=== PATIENT | female | born 2000 | race Caucasian/White ===

== ENCOUNTER 2020-03-21 15:38 | Emergency (ER) | payer BC ==
[~2020-03-21] VITALS: Ht 152.4 cm; Wt 45.1 kg
[2020-03-21 15:43] VITALS: Ht 152.4 cm; Wt 45.1 kg
[2020-03-21 16:15] LABS: BASOPHIL % 0.2 % (0-2); PLATELET COUNT 210 x10^3mcL (130-400); RED CELL DISTRIBUTION WIDTH 12.9 % (11.5-14.5)
[2020-03-21 16:28] LABS: ALBUMIN 3.8 g/dL (3.4-5.0); ALKALINE PHOSPHATASE 62 U/L (46-116); ALT/SGPT 16 U/L (14-59); AST/SGOT 10 U/L (15-37); BILIRUBIN TOTAL 0.24 mg/dL (0.20-1.00); CALCIUM 8.6 mg/dL (8.5-10.1); CARBON DIOXIDE 28.3 mmol/L (21-32); CHLORIDE SERUM 106 mmol/L (98-107); CREATININE SERUM 0.7 mg/dL (0.6-1.0); GFR1 > 60 mL/min; GLUCOSE SERUM 89 mg/dL (74-106); LIPASE 184 IU/L (73-393); POTASSIUM SERUM 3.4 mmol/L (3.5-5.1); SODIUM SERUM 140 mmol/L (136-145); TOTAL PROTEIN, SERUM 7.3 g/dL (6.4-8.2)
[2020-03-21 17:52] VITALS: BP 100/58
== END 2020-03-21 17:52 | disposition home or self-care (01) ==
LOC: ED 15:38
PROVIDERS: Emergency Medicine
DX: K59.00 Constipation, unspecified (principal); K29.70 Gastritis, unspecified, without bleeding
CPT/HCPCS: 36415; Q0092

== ENCOUNTER 2020-08-21 17:51 | Emergency (ER) | payer OTHER, BC ==
[~2020-08-21] VITALS: Ht 152.4 cm; Wt 45.8 kg
[2020-08-21 18:20] VITALS: Ht 152.4 cm; Wt 45.8 kg
[2020-08-21 20:26] VITALS: BP 90/65
== END 2020-08-21 20:26 | disposition home or self-care (01) ==
LOC: ED 17:51
DX: R51.9 Headache, unspecified (principal); R11.0 Nausea; V49.49XA Driver injured in collision with other motor vehicles in traffic accident, initial encounter; Y93.I9 Activity, other involving external motion; Y92.411 Interstate highway as the place of occurrence of the external cause; Y99.8 Other external cause status